=== PATIENT | female | born 1980 | race African-American/Black ===

== ENCOUNTER 2016-02-27 22:48 | Emergency (ER) | payer OTHER ==
[2016-02-27] MEDS ORDERED: ASPIRIN 81 MG CHEW TAB ONE (23:37)
[2016-02-28] MEDS ORDERED: METHYLPRED SOD SUCC 125 MG/2 ML VIAL ONE (02:05)
== END 2016-02-28 02:22 | disposition home or self-care (01) ==
LOC: ER 22:48
DX: R07.89 Other chest pain (principal); E11.9 Type 2 diabetes mellitus without complications; F17.210 Nicotine dependence, cigarettes, uncomplicated
CPT/HCPCS: 36415; 71010; 80053; 82550; 83735; 84484; 85025; 85610; 85730; 93005; 96374